=== PATIENT | female | born 1995 | race Two or more races ===

== ENCOUNTER → 2025-04-05 | Outpatient (CLI) | payer MEDICAID, SELFPAY ==
--- NOTE | 2025-04-05 15:45 | XR_ITS ---
Examination: OB Transvaginal ultrasound of the pelvis, complete Technique: Transvaginal sonographic images pelvis performed using mcrae scale imaging Exam date and time: April 05, 2025, 1753 hrs. Indications: Vaginal bleeding beginning 2 days ago. Clinical diagnosis are not Findings: Uterus 9.5 cm, pole 0.3 cm corresponds to 6 week 0 day gestational age No cardiac motion Right ovary 2.8 cm arterial flow Left ovary 3.4 cm arterial flow No fluid in the cul-de-sac Impression: Intrauterine gestation corresponding to 6 weeks 0 days gestational age No cardiac activity Recommend short-term follow-up transvaginal pelvic sonography to exclude embryonic demise
== END | disposition home or self-care (01) ==
LOC: CDIM 15:18
PROVIDERS: Referring Provider Obstetrics & Gynecology; Visit Provider Obstetrics & Gynecology
DX: O20.0 Threatened abortion (principal); Z3A.01 Less than 8 weeks gestation of pregnancy
CPT/HCPCS: 76817